=== PATIENT | male | born 1980 | race Caucasian/White ===

== ENCOUNTER 2020-05-30 00:11 | Emergency (ER) | payer SELFPAY ==
[~2020-05-30] VITALS: Ht 165.1 cm; Wt 70.3 kg
[~2020-05-30 00:11] MED LIST: Veetids 500500 MG PO
[2020-05-30] MEDS ORDERED: CEPH500 PO (01:28)
== END 2020-05-30 01:47 | disposition home or self-care (01) ==
LOC: ER 00:11
DX: S61.237A Puncture wound without foreign body of left little finger without damage to nail, initial encounter (principal); Z23 Encounter for immunization; W45.0XXA Nail entering through skin, initial encounter; Y92.89 Other specified places as the place of occurrence of the external cause; Y99.0 Civilian activity done for income or pay
CPT/HCPCS: 73140; 90471; 90714; 99283-25; A9270

== ENCOUNTER 2020-10-07 03:49 | Emergency (ER) | payer OTHER ==
[~2020-10-07] VITALS: Ht 162.6 cm; Wt 81.7 kg
[~2020-10-07 03:49] MED LIST changes: +CEPH500 PO
== END 2020-10-07 04:13 | disposition left against medical advice (07) ==
LOC: ER 03:49
DX: M79.662 Pain in left lower leg (principal); S86.112A Strain of other muscle(s) and tendon(s) of posterior muscle group at lower leg level, left leg, initial encounter; W10.9XXA Fall (on) (from) unspecified stairs and steps, initial encounter
CPT/HCPCS: 76882; 99283

== ENCOUNTER → 2024-02-13 | Outpatient (CLI) | payer OTHER ==
[2024-02-14 13:53] LABS: Chlamydia Trachomatis Urine NOT DETECTED (NOT DETECT); Neisseria Gonorrhoea Urine NOT DETECTED (NOT DETECT)
== END | disposition home or self-care (01) ==
LOC: LAB 16:14 → LAB SHORT 16:14
PROVIDERS: Physician Assistant
DX: R31.9 Hematuria, unspecified (principal)
CPT/HCPCS: 87491; 87591

== ENCOUNTER → 2024-02-29 | Outpatient (CLI) | payer OTHER | LOC: LAB SHORT 14:06 → LAB 14:06 | DX: R31.9 Hematuria, unspecified (principal) | CPT/HCPCS: 87086 ==